=== PATIENT | female | born 1985 | race Asian ===

== ENCOUNTER 2016-10-09 21:56 | Inpatient (IN) | payer OTHER ==
[~2016-10-09] VITALS: Ht 152.4 cm; Wt 84.8 kg
[2016-10-09 21:56] VITALS: BP_SYST 121
[2016-10-09 23:16] LABS: BILIRUBIN,URINE NEGATIVE (NEGATIVE); BLOOD, URINE 1+ (NEGATIVE); CLARITY/URINE SL CLOUDY (CLEAR); COLOR,URINE YELLOW (YELLOW); GLUCOSE,URINE NEGATIVE (NEGATIVE); KETONES,URINE 2+ (NEGATIVE); LEUKOCYTE ESTERASE ,URINE NEGATIVE (NEGATIVE); NITRITE, URINE NEGATIVE (NEGATIVE); PROTEIN URINE NEGATIVE (NEGATIVE); UROBILINOGEN,URINE 0.2 (0.2-1.0)
[2016-10-09 23:56] LABS: BACTERIA,URINE FEW /HPF (None Seen); MUCUS,URINE None Seen /LPF (None Seen); RBC,URINE 0-3 /HPF (0-3)
[2016-10-10] MEDS ORDERED: ACETAMINOPHEN 500 MG TABLET PO ONE (00:15)
[2016-10-10 01:00] LABS: BASOPHILS % (AUTO) 0.2 % (0.0-2.0); EOSINOPHILS # (AUTO) 0.1 K/uL (0.0-0.4); EOSINOPHILS % (AUTO) 0.5 % (0.0-4.0); HEMATOCRIT 34.3 % (36-48); HEMOGLOBIN 11.6 g/dL (12.0-16.0); LYMPHOCYTES # (AUTO) 2.7 K/uL (1.0-5.5); LYMPHOCYTES % (AUTO) 15.5 % (20.5-51.5); MEAN CORPUSCULAR HEMOGLOBIN 26 pg (27-31); MEAN CORPUSCULAR HGB CONC 34 % (32-36); MEAN CORPUSCULAR VOLUME 78 fL (79.0-98.0); MONOCYTES # (AUTO) 1.5 K/uL (0.0-1.0); MONOCYTES % (AUTO) 8.4 % (1.7-9.3); NEUTROPHILS # (AUTO) 13.2 K/uL (1.8-7.7); NEUTROPHILS % (AUTO) 75.4 % (40.0-70.0); PLATELET COUNT (AUTO) 273 K/uL (130-430); RED BLOOD CELL COUNT(AUTO) 4.38 MIL/uL (4.2-6.2); RED CELL DISTRIBUTION WIDTH 12.9 % (9.0-15.0); WHITE BLOOD COUNT (AUTO) 17.5 K/uL (4.8-10.8)
[2016-10-10 01:12] LABS: CALCIUM 8.6 mg/dL (8.4-11.0); CREATININE 0.62 mg/dL (0.55-1.30); POTASSIUM 3.6 mmol/L (3.5-5.1)
[2016-10-10] MEDS ORDERED: cefTRIAXone 1 GM in D5W 50 ML IV ONE (01:15)
[2016-10-10] MEDS ORDERED: NACL 0.9% 1,000 ML IV ONE (01:15)
[2016-10-10 01:25] LABS: ALBUMIN 2.9 g/dL (3.4-4.8); TOTAL BILIRUBIN 0.2 mg/dL (0.0-1.0); TOTAL PROTEIN, SERUM 7.3 g/dL (6.4-8.3)
[2016-10-10] MEDS ORDERED: cefTRIAXone 1 GM VIAL ONE (01:33)
[2016-10-10] MEDS ORDERED: SSNPH SQ (01:51)
[2016-10-10] MEDS ORDERED: INSU10VI4 SUBCUT (01:51)
[2016-10-10] MEDS: cefTRIAXone 1 GM IVPB PREMIX 50 ML IV SCH (03:00)
[2016-10-10] MEDS ORDERED: ONDANSETRON HCL 4 MG/2 ML VIAL IVP PRN (03:00)
[2016-10-10 03:26] VITALS: BP_SYST 101
[2016-10-10] MEDS: NACL 0.9% 1,000 ML IV SCH ×2 (03:55→16:13)
[2016-10-10] MEDS: ACETAMINOPHEN 325 MG TABLET PO PRN ×2 (04:10→20:56)
[2016-10-10 04:15] VITALS: BP_SYST 113
[2016-10-10] MEDS: INSULIN REGULAR, HUMAN 100 UNITS/ML, 10 ML VIAL (novoLIN R) SUBCUT PRN (06:14)
[2016-10-10 08:07] VITALS: BP_SYST 107
[2016-10-10] MEDS: LR 1,000 ML IV SCH ×2 (11:00→20:51)
[2016-10-10 12:36] VITALS: BP_SYST 116
[2016-10-10] MEDS ORDERED: ACETAMINOPHEN 650 MG SUPP.RECT RC PRN (16:00)
[2016-10-10 16:36] VITALS: BP_SYST 120
[2016-10-10 20:00] VITALS: BP_SYST 117
[2016-10-11 01:28] VITALS: BP_SYST 100
[2016-10-11] MEDS: LR 1,000 ML IV SCH ×4 (03:55→20:46)
[2016-10-11] MEDS: cefTRIAXone 1 GM IVPB PREMIX 50 ML IV SCH (03:55)
[2016-10-11 04:20] VITALS: BP_SYST 100
[2016-10-11] MEDS: NACL 0.9% 1,000 ML IV SCH ×2 (05:33→18:53)
[2016-10-11 07:31] LABS: BASOPHILS % (AUTO) 0.2 % (0.0-2.0); EOSINOPHILS # (AUTO) 0.2 K/uL (0.0-0.4); EOSINOPHILS % (AUTO) 1.9 % (0.0-4.0); HEMATOCRIT 31.4 % (36-48); HEMOGLOBIN 10.5 g/dL (12.0-16.0); LYMPHOCYTES # (AUTO) 2.4 K/uL (1.0-5.5); LYMPHOCYTES % (AUTO) 24.4 % (20.5-51.5); MEAN CORPUSCULAR HEMOGLOBIN 26 pg (27-31); MEAN CORPUSCULAR HGB CONC 33 % (32-36); MEAN CORPUSCULAR VOLUME 78 fL (79.0-98.0); MONOCYTES # (AUTO) 1.1 K/uL (0.0-1.0); MONOCYTES % (AUTO) 10.7 % (1.7-9.3); NEUTROPHILS # (AUTO) 6.1 K/uL (1.8-7.7); NEUTROPHILS % (AUTO) 62.8 % (40.0-70.0); PLATELET COUNT (AUTO) 263 K/uL (130-430); RED BLOOD CELL COUNT(AUTO) 4.04 MIL/uL (4.2-6.2); RED CELL DISTRIBUTION WIDTH 12.5 % (9.0-15.0); WHITE BLOOD COUNT (AUTO) 9.8 K/uL (4.8-10.8)
[2016-10-11 07:32] LABS: CALCIUM 8.1 mg/dL (8.4-11.0); CREATININE 0.63 mg/dL (0.55-1.30); POTASSIUM 3.5 mmol/L (3.5-5.1)
[2016-10-11 08:25] VITALS: BP_SYST 114
[2016-10-11 11:35] VITALS: BP_SYST 99
[2016-10-11 15:32] VITALS: BP_SYST 120
[2016-10-11 20:00] VITALS: BP_SYST 114
[2016-10-11] MEDS: INSULIN REGULAR, HUMAN 100 UNITS/ML, 10 ML VIAL (novoLIN R) SUBCUT PRN (21:11)
[2016-10-11] MEDS: ACETAMINOPHEN 325 MG TABLET PO PRN (23:59)
[2016-10-12 00:09] VITALS: BP_SYST 121
[2016-10-12] MEDS: cefTRIAXone 1 GM IVPB PREMIX 50 ML IV SCH (02:42)
[2016-10-12] MEDS: LR 1,000 ML IV SCH ×3 (02:42→16:44)
[2016-10-12 03:45] VITALS: BP_SYST 107
[2016-10-12 08:00] VITALS: BP_SYST 110
[2016-10-12] MEDS: NACL 0.9% 1,000 ML IV SCH ×2 (08:13→21:33)
[2016-10-12 12:38] VITALS: BP_SYST 112
[2016-10-12] MEDS: ACETAMINOPHEN 325 MG TABLET PO PRN (22:58)
[2016-10-13] VITALS: BP_SYST 105
[2016-10-13] MEDS: LR 1,000 ML IV SCH ×2 (02:35→06:04)
[2016-10-13] MEDS: cefTRIAXone 1 GM IVPB PREMIX 50 ML IV SCH (02:40)
[2016-10-13 04:27] VITALS: BP_SYST 101
[2016-10-13 04:29] VITALS: BP_SYST 128
[2016-10-13 08:00] VITALS: BP_SYST 113
[2016-10-13 10:43] VITALS: BP_SYST 113
[2016-10-13] MEDS: NACL 0.9% 1,000 ML IV SCH (10:53)
== END 2016-10-13 10:57 | disposition home or self-care (01) | DRG 781 ==
LOC: SED 21:56 → SMU 10-10 02:53
PROVIDERS: ADMIT Internal Medicine; ATTEND Internal Medicine
DX: O99.612 Diseases of the digestive system complicating pregnancy, second trimester (principal); R65.10 Systemic inflammatory response syndrome (SIRS) of non-infectious origin without acute organ dysfunction; N12 Tubulo-interstitial nephritis, not specified as acute or chronic; O23.42 Unspecified infection of urinary tract in pregnancy, second trimester; O24.419 Gestational diabetes mellitus in pregnancy, unspecified control; Z98.891 History of uterine scar from previous surgery; K80.20 Calculus of gallbladder without cholecystitis without obstruction; Z3A.14 14 weeks gestation of pregnancy
CPT/HCPCS: 36415; 72195; 74181; 76700-TC; 76805-TC; 80048; 80053; 81000-TC; 82962; 83605; 84702-TC; 85025; 87040-TC; 87086; 96365; 99285; J0696; J1815; J7030; J7060; J7120

== ENCOUNTER 2021-03-04 06:11 | Day surgery (SDC) | payer BC, SELFPAY ==
[2021-03-03 15:21] LABS: BASOPHILS % (AUTO) 0.5 % (0.0-2.0); EOSINOPHILS # (AUTO) 0.3 K/uL (0.0-0.4); EOSINOPHILS % (AUTO) 3.5 % (0.0-4.0); HEMATOCRIT 35.9 % (36-48); HEMOGLOBIN 11.9 g/dL (12.0-16.0); LYMPHOCYTES # (AUTO) 2.6 K/uL (1.0-5.5); LYMPHOCYTES % (AUTO) 28.3 % (20.5-51.5); MEAN CORPUSCULAR HEMOGLOBIN 26 pg (27-31); MEAN CORPUSCULAR HGB CONC 33 % (32-36); MEAN CORPUSCULAR VOLUME 80 fL (79.0-98.0); MONOCYTES # (AUTO) 0.5 K/uL (0.0-1.0); MONOCYTES % (AUTO) 5.8 % (1.7-9.3); NEUTROPHILS # (AUTO) 5.8 K/uL (1.8-7.7); NEUTROPHILS % (AUTO) 61.9 % (40.0-70.0); PLATELET COUNT (AUTO) 357 K/uL (130-430); RED CELL DISTRIBUTION WIDTH 14.8 % (9.0-15.0); WHITE BLOOD COUNT (AUTO) 9.3 K/uL (4.8-10.8)
[2021-03-03 15:24] LABS: BILIRUBIN,URINE NEGATIVE (NEGATIVE); BLOOD, URINE 3+ (NEGATIVE); CLARITY/URINE CLEAR (CLEAR); COLOR,URINE YELLOW (YELLOW); GLUCOSE,URINE NEGATIVE (NEGATIVE); KETONES,URINE NEGATIVE (NEGATIVE); LEUKOCYTE ESTERASE ,URINE 1+ (NEGATIVE); NITRITE, URINE NEGATIVE (NEGATIVE); PROTEIN URINE NEGATIVE (NEGATIVE); UROBILINOGEN,URINE 0.2 (0.2-1.0)
[2021-03-03 18:41] LABS: BACTERIA,URINE FEW /HPF (None Seen)
[~2021-03-04] VITALS: Ht 152.4 cm; Wt 79.4 kg
[~2021-03-04 06:11] MED LIST: INSU10VI4 SUBCUT; SSNPH SQ
[2021-03-04] MEDS ORDERED: ONDANSETRON HCL 4 MG/2 ML VIAL IVP PRN (07:45)
[2021-03-04] MEDS ORDERED: HYDROcodone/ACETAMIN 5-325 MG TAB (NORCO/ VICODIN) PO PRN (07:45)
[2021-03-04] MEDS ORDERED: OXYCODONE/ACETAMINOPHEN 5-325 TABLET PO PRN ×2 (07:45)
[2021-03-04] MEDS ORDERED: HYDROmorphone 2 MG/ML VIAL IVP PRN (08:30)
[2021-03-04] MEDS ORDERED: LR 1,000 ML IV SCH (08:30)
[2021-03-04] MEDS ORDERED: KETOROLAC TROMETHAMINE 30 MG VIAL IVP PRN (08:30)
[2021-03-04] MEDS ORDERED: HYDROmorphone 1 MG/ML INJ. CARTRIDGE IVP PRN (08:30)
[2021-03-04] MEDS ORDERED: METHYLERGONOVINE MALEATE 0.2 MG TABLET PO SCH (09:00)
[2021-03-04] MEDS ORDERED: OXYTOCIN/0.9 % SODIUM CHLORIDE 20 UNITS/1,000 ML BAG IV ONE (09:28)
[2021-03-04] MEDS ORDERED: GLYCOPYRROLATE 0.2 MG/ML VIAL ONE (09:28)
[2021-03-04] MEDS ORDERED: NS IRRIG SOLN 1000 ML IR ONE (09:28)
[2021-03-04] MEDS ORDERED: NS 1000 ML IV.SOLN IV ONE (09:28)
[2021-03-04] MEDS ORDERED: ONDANSETRON HCL 4 MG/2 ML VIAL ONE (09:28)
[2021-03-04] MEDS ORDERED: PROPOFOL 200MG/ 20ML VIAL (DIPRIVAN) IV ONE (09:28)
[2021-03-04] MEDS ORDERED: fentaNYL CITRATE/PF 100 MCG/2 ML AMP ONE (09:28)
[2021-03-04] MEDS ORDERED: METOCLOPRAMIDE HCL 10 MG/2 ML VIAL ONE (09:28)
[2021-03-04] MEDS ORDERED: LR 1,000 ML IV.SOLN IV ONE (09:28)
[2021-03-04] MEDS ORDERED: MIDAZOLAM HCL 5 MG/ML VIAL (VERSED) IV ONE (09:28)
[2021-03-04] MEDS ORDERED: SEVOFLURANE 15 MIN GAS INH ONE (09:28)
[2021-03-04] MEDS ORDERED: WATER FOR IRRIGATION,STERILE 1,000 ML IRRIG.SOLN IR ONE (09:28)
[2021-03-04 10:57] VITALS: BP_SYST 115
== END 2021-03-04 10:50 | disposition home or self-care (01) ==
LOC: SDS 06:11 → SMU 06:12 → SDS 10:50
PROVIDERS: ATTEND Specialist
DX: O72.1 Other immediate postpartum hemorrhage (principal); O73.1 Retained portions of placenta and membranes, without hemorrhage; N93.9 Abnormal uterine and vaginal bleeding, unspecified; Z79.01 Long term (current) use of anticoagulants; Z79.899 Other long term (current) drug therapy
CPT/HCPCS: 36415; 59160; 81000; 84703; 85025; 87086; 87426; 88307; J2250; J2405; J2590; J2704; J2765; J3010; J3490; J7030; J7120